=== PATIENT | female | born 1970 | race African-American/Black ===

== ENCOUNTER 2018-04-14 11:16 | Emergency (ER) | payer MEDICAID ==
[~2018-04-14 11:16] MED LIST: ATEN-42 PO; DIVA-18 PO; GABA-529 PO; HYDR-523 PO; INDO25CA18 PO; LEVE750T4 PO; LORA2TAB2
== END 2018-04-14 13:13 | disposition left against medical advice (07) ==
LOC: ER 13:10
DX: Z53.21 Procedure and treatment not carried out due to patient leaving prior to being seen by health care provider (principal)

== ENCOUNTER 2019-05-31 11:35 | Emergency (ER) | payer MEDICAID ==
[~2019-05-31] VITALS: Ht 170.2 cm; Wt 72.0 kg
[~2019-05-31 11:35] MED LIST changes: +INDO-13 PO; -INDO25CA18 PO
[2019-05-31 13:27] LABS: BASOPHILS % 0.8 % (0.0-2.0); EOSINOPHILS % 5.2 % (0.0-5.0); HEMATOCRIT. 34.1 % (36.0-48.0); HEMOGLOBIN. 11.4 g/dL (12.0-16.0); LYMPHOCYTES % 15.2 % (20.0-50.0); MEAN CORPUSCULAR HEMOGLOBIN 29.8 pg (28.0-32.0); MEAN CORPUSCULAR VOLUME 89.5 fL (81.0-99.0); MEAN PLATELET VOLUME 8.4 fl (7.4-10.4); NEUTROPHILS % 72.8 % (40.0-76.0); PLATELET 207 x1000/uL (130-400); RED BLOOD CELL COUNT 3.81 mill/uL (4.2-5.4); RED CELL DISTRIBUTION WIDTH 18.1 % (11.6-14.6)
[2019-05-31 13:32] LABS: CHLORIDE 110 mEq/L (98-107)
[2019-05-31 14:07] LABS: PROTHROMBIN TIME 68.3 sec (9.6-11.0)
[2019-05-31 14:32] LABS: INR 7.2
[2019-05-31 14:47] VITALS: BP 98/61
[2019-05-31] MEDS ORDERED: PHYTONADIONE 10MG/ML AMP SUBCUT ONE (15:30)
== END 2019-05-31 15:40 | disposition home or self-care (01) ==
LOC: ER 11:35
DX: R79.1 Abnormal coagulation profile (principal); F31.9 Bipolar disorder, unspecified; I51.9 Heart disease, unspecified; I48.91 Unspecified atrial fibrillation; F12.10 Cannabis abuse, uncomplicated; Z88.0 Allergy status to penicillin; Z79.899 Other long term (current) drug therapy; Z98.890 Other specified postprocedural states
CPT/HCPCS: 36415; 80053; 85025; 85610; 86850; 86900; 86901; 96372; 99283; J3430